=== PATIENT | male | born 1995 | race Caucasian/White ===

== ENCOUNTER 2021-01-17 13:25 | Emergency (ER) | payer BC ==
[~2021-01-17] VITALS: Ht 177.8 cm; Wt 70.3 kg
[2021-01-17 13:30] VITALS: BP 117/76
--- NOTE | 2021-01-17 13:40 | NUR ---
Patient discharged to home in stable condition. Written and verbal after care instructions given. Patient verbalizes understanding of instruction.
== END 2021-01-17 13:47 | disposition home or self-care (01) ==
LOC: ER 13:29
DX: T63.441A Toxic effect of venom of bees, accidental (unintentional), initial encounter (principal); Y92.89 Other specified places as the place of occurrence of the external cause